=== PATIENT | female | born 1990 | race African-American/Black ===

== ENCOUNTER 2021-06-10 19:08 | Emergency (ER) | payer MEDICAID ==
[~2021-06-10] VITALS: Ht 170.2 cm; Wt 90.0 kg
[2021-06-10] MEDS ORDERED: PREDNISONE 20MG TABLET PO ONE (19:30)
[2021-06-10] MEDS ORDERED: FAMO-135 MT (20:07)
[2021-06-10] MEDS ORDERED: P20 MT (20:07)
[2021-06-10] MEDS ORDERED: DIPH25TA62 MT (20:07)
[2021-06-10] MEDS ORDERED: SODIUM CHLORIDE 0.9% 1,000 ML IV ONE (20:45)
[2021-06-10] MEDS ORDERED: ACETAMINOPHEN 325MG TABLET PO ONE (21:30)
[2021-06-10 22:38] VITALS: BP 142/88
== END 2021-06-10 22:38 | disposition home or self-care (01) ==
LOC: ER 19:08
DX: T78.40XA Allergy, unspecified, initial encounter (principal); I10 Essential (primary) hypertension; Z98.890 Other specified postprocedural states; Z91.013 Allergy to seafood; X58.XXXA Exposure to other specified factors, initial encounter
CPT/HCPCS: 81025; 96360; 99283; J7030; J7512